=== PATIENT | male | born 1955 | race Asian ===

== ENCOUNTER 2018-07-16 10:51 | Inpatient (IN) | payer OTHER ==
[~2018-07-16] VITALS: Ht 177.8 cm; Wt 84.8 kg
[2018-07-16] MEDS ORDERED: SODIUM CHLORIDE 0.9% 1,000 ML IV ONE (11:27)
[2018-07-16 11:52] LABS: HEMATOCRIT. 39.5 % (42.0-52.0); HEMOGLOBIN. 12.9 g/dL (14.0-18.0); MEAN CORPUSCULAR HEMOGLOBIN 20.6 pg (28.0-32.0); MEAN CORPUSCULAR VOLUME 63.1 fL (80.0-94.0); MEAN PLATELET VOLUME 8.7 fl (7.4-10.4); PLATELET 211 x1000/uL (130-400); RED BLOOD CELL COUNT 6.26 mill/uL (4.7-6.1)
[2018-07-16 11:57] LABS: CHLORIDE 101 mEq/L (98-107)
[2018-07-16 11:58] LABS: PARTIAL THROMBOPLASTIN TIME 32.7 sec (23.4-31.0); PROTHROMBIN TIME 10.5 sec (9.1-11.1)
[2018-07-16 12:41] LABS: PLATELET ESTIMATE NORMAL
[2018-07-16 12:46] LABS: BG BASE EXCESS -1.7 mmol/L (-2.0-2.0); BG CARBOXYHEMOGLOBIN 0.2 % (0.5-1.5); BG DEOXYHEMOGLOBIN 4.6 % (0.0-5.0); BG FRACTION INSPIRED OXYGEN 21; BG HCO3 ACT 20.9 mmol/L (22.0-26.0); BG METHEMOGLOBIN 0.2 % (0.0-1.5); BG OXYGEN SATURATION 95.4 % (92.0-98.5); BG PH 7.475 (7.350-7.450); BG SAMPLE SITE RIGHT RADIAL; BG TOTAL HEMOGLOBIN 12.4 g/dL (12.0-18.0); BG VENT MODE ROOM AIR
[2018-07-16 13:21] LABS: CREATINE KINASE 46 IU/L (39-308)
[2018-07-16 13:22] LABS: CREATINE KINASE MB FRACTION < 1.0 ng/mL (0.5-3.6)
[2018-07-16] MEDS ORDERED: LEVOFLOXACIN 500MG PREMIX 100 ML IV ONE (13:45)
[2018-07-16] MEDS ORDERED: IOHEXOL-350 100 ML BOTTLE ONE (14:36)
[2018-07-16] MEDS ORDERED: IPRATROPIUM/ALBUTEROL 0.5-3(2.5)MG/3ML NEB HHN PRN (16:30)
[2018-07-16] MEDS ORDERED: BENZONATATE 100MG CAPSULE PO PRN (16:30)
[2018-07-16] MEDS ORDERED: MAGNESIUM/ALUMINUM HYDROXIDE/SIMETHICONE 30ML UDC PO PRN (17:00)
[2018-07-16] MEDS ORDERED: ACETAMINOPHEN 325MG TABLET PO PRN (17:00)
[2018-07-16] MEDS ORDERED: DOCUSATE SODIUM 100MG CAPSULE PO PRN (17:00)
[2018-07-16] MEDS ORDERED: ONDANSETRON HCL 4MG/2ML INJ IV PRN (17:00)
[2018-07-16] MEDS ORDERED: GUAIFENESIN 200MG/10ML SUGAR FREE UDC PO PRN (17:00)
[2018-07-16] MEDS ORDERED: DIPHENHYDRAMINE 50MG/ML VIAL IV PRN (17:00)
[2018-07-16] MEDS ORDERED: CLONIDINE 0.1MG TABLET PO PRN (17:00)
[2018-07-16 17:18] LABS: PHOSPHORUS 2.1 mg/dL (2.5-4.9)
[2018-07-16 18:30] VITALS: BP 125/79
[2018-07-16 18:45] VITALS: BP 144/93
[2018-07-16] MEDS ORDERED: SIMV40TA5 MT (19:57)
[2018-07-16] MEDS ORDERED: OMEP40CA34 MT (19:57)
[2018-07-16] MEDS ORDERED: ASPI-864 MT (19:57)
[2018-07-16] MEDS ORDERED: QUIN20TA30 MT (19:57)
[2018-07-16] MEDS ORDERED: HYDR25TA MT (19:57)
[2018-07-16] MEDS ORDERED: METF-815 MT (19:57)
[2018-07-16] MEDS ORDERED: HYDROCODONE-ACETAMIN PO (19:57)
[2018-07-16] MEDS ORDERED: IBUP-2029 MT (19:57)
[2018-07-16] MEDS ORDERED: DEXTROSE 50% WATER 50ML SYRINGE IV PRN (20:00)
[2018-07-16] MEDS ORDERED: CEFTRIAXONE 2 G in DEXTROSE 5% WATER 50 ML IV SCH (20:00)
[2018-07-16] MEDS ORDERED: PNEUMOCOCCAL 23-VAL P-SAC VAC 0.5 ML IM ONE (20:00)
[2018-07-16 20:02] VITALS: BP 154/95
[2018-07-16] MEDS: IPRATROPIUM/ALBUTEROL 0.5-3(2.5)MG/3ML NEB HHN SCH (20:43)
[2018-07-16] MEDS ORDERED: AZITHROMYCIN 500 MG in DEXT 5% WATER 250 ML IV SCH (21:00)
[2018-07-16] MEDS: BLOOD SUGAR DIAGNOSTIC STRIP TEST SCH (21:42)
[2018-07-16] MEDS: INSULIN LISPRO 100 UNITS/ML SUBCUT SCH (21:46)
[2018-07-16 22:01] VITALS: BP 147/80
[2018-07-17] VITALS (12 sets, daily range): BP systolic 97–149; BP diastolic 55–97
[2018-07-17 00:09] LABS: CREATINE KINASE 36 IU/L (39-308)
[2018-07-17 00:10] LABS: CREATINE KINASE MB FRACTION < 1.0 ng/mL (0.5-3.6)
[2018-07-17] MEDS: IPRATROPIUM/ALBUTEROL 0.5-3(2.5)MG/3ML NEB HHN SCH ×4 (01:38→21:16)
[2018-07-17 06:08] LABS: HEMATOCRIT. 35.9 % (42.0-52.0); HEMOGLOBIN. 11.9 g/dL (14.0-18.0); MEAN CORPUSCULAR HEMOGLOBIN 20.6 pg (28.0-32.0); MEAN CORPUSCULAR VOLUME 61.9 fL (80.0-94.0); MEAN PLATELET VOLUME 8.7 fl (7.4-10.4); PLATELET 228 x1000/uL (130-400)
[2018-07-17 06:21] LABS: CHLORIDE 104 mEq/L (98-107)
[2018-07-17 06:35] LABS: CREATINE KINASE 36 IU/L (39-308)
[2018-07-17 06:36] LABS: HDL CHOLESTEROL 24 mg/dL (40-59); LDL CHOLESTEROL 53 mg/dL (5-100)
[2018-07-17 06:37] LABS: CLARITY URINE CLEAR (CLEAR); COLOR URINE YELLOW (YELLOW); KETONES URINE TRACE (NEGATIVE); LEUKOCYTE ESTERASE URINE NEGATIVE (NEGATIVE); NITRITE URINE NEGATIVE (NEGATIVE); OCCULT BLOOD URINE NEGATIVE (NEGATIVE); PROTEIN URINE NEGATIVE (NEGATIVE); SPECIFIC GRAVITY URINE 1.008 (1.005-1.030); UROBILINOGEN URINE 0.2 E.U./dL (0.2-1.0)
[2018-07-17 06:40] LABS: CREATINE KINASE MB FRACTION < 1.0 ng/mL (0.5-3.6)
[2018-07-17] MEDS: BLOOD SUGAR DIAGNOSTIC STRIP TEST SCH ×4 (07:30→21:25)
[2018-07-17] MEDS: HYDROCODONE/ACETAMINOPHEN 5/325MG TABLET PO PRN ×2 (07:53→18:35)
[2018-07-17] MEDS: INSULIN LISPRO 100 UNITS/ML SUBCUT SCH ×4 (08:58→21:33)
[2018-07-17] MEDS ORDERED: CLOPIDOGREL 75MG TABLET PO NR (12:15)
[2018-07-17] MEDS: HYDROCHLOROTHIAZIDE 25MG TABLET PO SCH (12:36)
[2018-07-17] MEDS: ASPIRIN 81MG TABLET PO SCH (12:36)
[2018-07-17] MEDS: OMEPRAZOLE 20MG CAPSULE EXTENDED RELEASE PO SCH (12:37)
[2018-07-17] MEDS: LISINOPRIL 20MG TABLET PO SCH (12:37)
[2018-07-17] MEDS: MAGNESIUM OXIDE 400MG TABLET PO SCH (12:38)
[2018-07-17 12:42] LABS: PHOSPHORUS 3.5 mg/dL (2.5-4.9)
[2018-07-17 16:34] LABS: PLATELET ESTIMATE NORMAL
[2018-07-17] MEDS ORDERED: CEFTRIAXONE 2 G in DEXTROSE 5% WATER 50 ML IV SCH (20:00)
[2018-07-17] MEDS ORDERED: ATORVASTATIN CALCIUM 40MG TABLET PO SCH (21:00)
[2018-07-17] MEDS ORDERED: AZITHROMYCIN 500 MG in DEXT 5% WATER 250 ML IV SCH (21:00)
[2018-07-18] VITALS (11 sets, daily range): BP systolic 94–140; BP diastolic 51–87
[2018-07-18] MEDS: IPRATROPIUM/ALBUTEROL 0.5-3(2.5)MG/3ML NEB HHN SCH ×3 (02:23→13:55)
[2018-07-18 06:06] LABS: BASOPHILS % 2.1 % (0.0-2.0); EOSINOPHILS % 3.8 % (0.0-5.0); HEMATOCRIT. 37.2 % (42.0-52.0); HEMOGLOBIN. 12.4 g/dL (14.0-18.0); LYMPHOCYTES % 23.4 % (20.0-50.0); MEAN CORPUSCULAR HEMOGLOBIN 20.6 pg (28.0-32.0); MEAN CORPUSCULAR VOLUME 61.9 fL (80.0-94.0); MONOCYTES % 13.3 % (2.0-8.0); NEUTROPHILS % 57.4 % (40.0-76.0); PLATELET 306 x1000/uL (130-400); RED BLOOD CELL COUNT 6.01 mill/uL (4.7-6.1); RED CELL DISTRIBUTION WIDTH 15.2 % (11.6-14.6)
[2018-07-18 06:25] LABS: CHLORIDE 101 mEq/L (98-107)
[2018-07-18] MEDS: BLOOD SUGAR DIAGNOSTIC STRIP TEST SCH ×2 (08:06→13:12)
[2018-07-18] MEDS: HYDROCHLOROTHIAZIDE 25MG TABLET PO SCH (08:48)
[2018-07-18] MEDS: ASPIRIN 81MG TABLET PO SCH (08:48)
[2018-07-18] MEDS: MAGNESIUM OXIDE 400MG TABLET PO SCH (08:48)
[2018-07-18] MEDS: OMEPRAZOLE 20MG CAPSULE EXTENDED RELEASE PO SCH (08:48)
[2018-07-18] MEDS: LISINOPRIL 20MG TABLET PO SCH (08:48)
[2018-07-18] MEDS ORDERED: CLOPIDOGREL 75MG TABLET PO SCH (09:00)
[2018-07-18] MEDS: INSULIN LISPRO 100 UNITS/ML SUBCUT SCH ×2 (09:00→13:14)
[2018-07-18] MEDS ORDERED: INSULIN GLARGINE UD 100 UNITS/ML SYR SUBCUT SCH (22:00)
== END 2018-07-18 14:50 | disposition home or self-care (01) | DRG 871 ==
LOC: ER 11:13 → 5EST 13:45 → EDBEDREQ 13:47 → EDBEDREQSVC 13:47 → ENRESERV 17:39
PROVIDERS: ADMIT Internal Medicine; ATTEND Internal Medicine
DX: A41.9 Sepsis, unspecified organism (principal); J18.1 Lobar pneumonia, unspecified organism; J96.01 Acute respiratory failure with hypoxia; E44.0 Moderate protein-calorie malnutrition; E87.3 Alkalosis; E87.1 Hypo-osmolality and hyponatremia; E11.65 Type 2 diabetes mellitus with hyperglycemia; I11.9 Hypertensive heart disease without heart failure; I49.3 Ventricular premature depolarization; D64.9 Anemia, unspecified; E78.5 Hyperlipidemia, unspecified; I25.10 Atherosclerotic heart disease of native coronary artery without angina pectoris; E83.42 Hypomagnesemia; E83.39 Other disorders of phosphorus metabolism; I25.2 Old myocardial infarction; Z95.5 Presence of coronary angioplasty implant and graft; Z68.26 Body mass index [BMI] 26.0-26.9, adult
CPT/HCPCS: 36415; 36600; 71045; 71275; 80048; 80061; 82375; 82550; 82553; 82805; 82962; 83036; 83605; 83735; 83880; 84100; 84145; 84443; 84484; 85379; 86850; 86900; 87070; 87804; 93005; 93306; 93970; 94640; 96365; 97162; 97166; 99291; J0456; J0696; J1815; J1956; J7030; J7050; J7060; J7620; Q9967